=== PATIENT | male | born 1995 | race Caucasian/White ===

== ENCOUNTER → 2018-04-03 | Outpatient (REF) | payer OTHER | LOC: M SFHCLERA 13:17 | DX: L08.9 Local infection of the skin and subcutaneous tissue, unspecified (principal) ==

== ENCOUNTER 2019-05-04 11:34 | Emergency (ER) | payer OTHER, SELFPAY ==
[~2019-05-04] VITALS: Ht 182.9 cm; Wt 66.3 kg
[2019-05-04] MEDS ORDERED: BUPREN/NALOX SL (11:42)
[2019-05-04] MEDS ORDERED: ESCI20TA (11:42)
[2019-05-04] MEDS ORDERED: NS 1,000 ML IV ONE (12:15)
[2019-05-04 12:52] LABS: BASO % 0.4 % (0.0-1.0); EOS % 0.4 % (0.0-3.0); HEMATOCRIT 42.4 % (42.0-52.0); HEMOGLOBIN 14.6 g/dl (13.5-17.5); LYMPH # 1.2 10^3/uL (1.5-5.0); LYMPH % 26.1 % (24.0-44.0); MEAN CORPUSCULAR HEMOGLOBIN 33.9 pg (27.0-33.0); MEAN CORPUSCULAR HGB CONC 34.4 g/dl (32.0-36.5); MEAN CORPUSCULAR VOLUME 98.4 fl (80.0-96.0); MONO # 0.3 10^3/uL (0.0-0.8); NEUTROPHILS % 65.9 % (36.0-66.0); PLATELET COUNT, AUTOMATED 274 10^3/uL (150-450); RED BLOOD COUNT 4.31 10^6/uL (4.30-6.10); WHITE BLOOD COUNT 4.6 10^3/uL (4.0-10.0)
[2019-05-04 13:20] LABS: AMPHETAMINES LEVEL URINE NEGATIVE (NEGATIVE); BARBITURATES URINE NEGATIVE (NEGATIVE); BENZODIAZEPINES URINE NEGATIVE (NEGATIVE); CANNABINOIDS URINE NEGATIVE (NEGATIVE); COCAINE METABOLITE URINE NEGATIVE (NEGATIVE); METHADONE URINE NEGATIVE (NEGATIVE); OPIATES URINE NEGATIVE (NEGATIVE); PHENCYCLIDINE URINE NEGATIVE (NEGATIVE)
[2019-05-04 13:25] LABS: HEMOGLOBIN A1c 4.3 %
[2019-05-04 13:31] LABS: ALBUMIN 4.3 GM/DL (3.2-5.2); ALT/SGPT 19 U/L (12-78); BILIRUBIN,TOTAL 1.7 MG/DL (0.2-1.0); BLOOD UREA NITROGEN 15 MG/DL (7-18); CALCIUM LEVEL 8.9 MG/DL (8.5-10.1); CARBON DIOXIDE LEVEL 29 MEQ/L (21-32); CHLORIDE LEVEL 100 MEQ/L (98-107); CREATININE FOR GFR 0.82 MG/DL (0.70-1.30); FREE T4 0.73 NG/DL (0.76-1.46); GLOMERULAR FILTRATION RATE > 60.0 (>60); GLUCOSE, FASTING 111 MG/DL (70-100); POTASSIUM SERUM 3.9 MEQ/L (3.5-5.1); SODIUM LEVEL 138 MEQ/L (136-145); TOTAL PROTEIN 7.2 GM/DL (6.4-8.2)
--- NOTE | 2019-05-04 14:04 | ECGEPIP ---
[facility] - ED Test Date: 2019-05-04 Pat Name: CHRISTI PASTOR Department: Room: - Gender: Male Map Maker: JStella : 1995 Requested By: AUGUSTIN De Souza PA-C Order Number: [id number] Reading MD: Ericka Meeks Measurements Intervals [place] Rate: 69 P: 267 GA: 105 QRS: 56 QRSD: 85 T: 41 QT: 369 QTc: 396 Interpretive Statements JUNCTIONAL RHYTHM ABNORMAL RHYTHM ECG No prior Electronically Signed on 05-04-2019 14:04:00 EDT by Ericka Meeks
[2019-05-04 14:22] VITALS: BP 149/93
[2019-05-05 09:53] LABS: VITAMIN B12 LEVEL 328 PG/ML (247-911)
[2019-05-07 00:06] LABS: ANA (HEP2) Negative (.); Lyme Disease IgG/IgM Antibodie <0.91 ISR (0.00-0.90); Lyme Disease IgM Ab Quantitati <0.80 index (0.00-0.79)
== END 2019-05-04 14:25 | disposition home or self-care (01) ==
LOC: M ED 11:34
DX: F41.9 Anxiety disorder, unspecified (principal); R42 Dizziness and giddiness; F10.10 Alcohol abuse, uncomplicated; R35.0 Frequency of micturition; R63.1 Polydipsia; R51 Headache; H53.8 Other visual disturbances; F17.200 Nicotine dependence, unspecified, uncomplicated; Z88.0 Allergy status to penicillin; Z79.899 Other long term (current) drug therapy

== ENCOUNTER → 2019-12-02 | Outpatient (CLI) | payer OTHER ==
[~2019-12-02] MED LIST: BUPREN/NALOX SL; ESCI20TA
== END ==
LOC: M LABSMTC 12:43
PROVIDERS: ATTEND Family Medicine
DX: Z11.59 Encounter for screening for other viral diseases (principal); Z20.828 Contact with and (suspected) exposure to other viral communicable diseases

== ENCOUNTER 2021-11-16 13:34 | Emergency (ER) | payer OTHER ==
[~2021-11-16] VITALS: Ht 180.3 cm; Wt 65.9 kg
[~2021-11-16 13:34] MED LIST changes: -ESCI20TA; +ESCI20TA16
[2021-11-16] MEDS ORDERED: BUPR150T12 (13:55)
[2021-11-16] MEDS ORDERED: [UNRECOGNIZED DRUG - OTHER] (13:55)
[2021-11-16] MEDS ORDERED: PROP10TA56 (13:55)
[2021-11-16] MEDS ORDERED: SUBL100I SC (13:55)
[2021-11-16] MEDS ORDERED: TRAZ-252 (13:55)
[2021-11-16] MEDS ORDERED: VITA200032 (13:55)
[2021-11-16] MEDS ORDERED: FLUO20CA22 (13:55)
[2021-11-16] MEDS ORDERED: ACAM0.05 (13:55)
[2021-11-16] MEDS ORDERED: BUSP10TA (13:55)
[2021-11-16] MEDS ORDERED: OMEP-173 (13:55)
[2021-11-16] MEDS ORDERED: HYDR-3363 (13:55)
[2021-11-16] MEDS ORDERED: B COMPLEX (13:55)
[2021-11-16 16:01] LABS: HEMATOCRIT 37.9 % (42.0-52.0); HEMOGLOBIN 13.8 g/dl (13.5-17.5); MEAN CORPUSCULAR HEMOGLOBIN 33.7 pg (27.0-33.0); MEAN CORPUSCULAR HGB CONC 36.4 g/dl (32.0-36.5); MEAN CORPUSCULAR VOLUME 92.4 fl (80.0-96.0); PLATELET COUNT, AUTOMATED 281 10^3/uL (150-450); WHITE BLOOD COUNT 3.9 10^3/uL (4.0-10.0)
[2021-11-16 16:37] LABS: ACETAMINOPHEN LEVEL < 2.0 UG/ML (10.0-30.0); ALBUMIN 4.6 GM/DL (3.2-5.2); ALT/SGPT 33 U/L (12-78); BILIRUBIN,DIRECT 0.5 MG/DL (0.0-0.2); BILIRUBIN,TOTAL 2.3 MG/DL (0.2-1.0); BLOOD UREA NITROGEN 7 MG/DL (7-18); CALCIUM LEVEL 9.8 MG/DL (8.5-10.1); CARBON DIOXIDE LEVEL 32 MEQ/L (21-32); CHLORIDE LEVEL 103 MEQ/L (98-107); CREATININE FOR GFR 0.77 MG/DL (0.70-1.30); ETHYL ALCOHOL (ETHANOL) < 0.003 % (0.000-0.010); GLOMERULAR FILTRATION RATE > 60.0 (>60); GLUCOSE, FASTING 108 MG/DL (70-100); POTASSIUM SERUM 4.5 MEQ/L (3.5-5.1); SALICYLATE LEVEL < 1.7 MG/DL (5.0-30.0); SODIUM LEVEL 139 MEQ/L (136-145); TOTAL PROTEIN 7.4 GM/DL (6.4-8.2)
[2021-11-16 17:40] LABS: AMPHETAMINES LEVEL URINE NEGATIVE (NEGATIVE); BARBITURATES URINE NEGATIVE (NEGATIVE); BENZODIAZEPINES URINE NEGATIVE (NEGATIVE); CANNABINOIDS URINE NEGATIVE (NEGATIVE); COCAINE METABOLITE URINE NEGATIVE (NEGATIVE); METHADONE URINE NEGATIVE (NEGATIVE); OPIATES URINE NEGATIVE (NEGATIVE); PHENCYCLIDINE URINE NEGATIVE (NEGATIVE)
[2021-11-16 18:39] VITALS: BP 134/78
== END 2021-11-16 18:42 | disposition home or self-care (01) ==
LOC: M ED 13:34
DX: F41.9 Anxiety disorder, unspecified (principal); Z79.899 Other long term (current) drug therapy; Z88.0 Allergy status to penicillin